=== PATIENT | male | born 1970 | race American Indian/Alaskan Native ===

== ENCOUNTER 2017-10-15 16:31 | Emergency (ER) | payer MEDICARE ==
[2017-10-15 17:18] LABS: Basophils % (Auto) 1.2 % (0.0-1.8); Eosinophils % (Auto) 0.9 % (0.0-4.3); Hematocrit 32.6 % (35.5-45.6); Hemoglobin 10.5 gm/dl (11.8-15.2); Mean Corpuscular HGB Conc 32 % (32-34); Mean Corpuscular Hemoglobin 28 pg (28-32); Mean Corpuscular Volume 86 fl (84-94); Platelet Count 324 K/mm3 (140-440); Red Blood Count 3.79 M/mm3 (3.65-5.03); Red Cell Distribution Width 16.1 % (13.2-15.2); White Blood Count 5.7 K/mm3 (4.5-11.0)
[2017-10-15 17:41] LABS: Anion Gap 20 mmol/L; BUN/Creatinine Ratio 20; Blood Urea Nitrogen 20 mg/dL (9-20); Carbon Dioxide 22 mmol/L (22-30); Chloride 98.6 mmol/L (98-107); Glucose 281 mg/dL (75-100); Potassium 3.9 mmol/L (3.6-5.0); Sodium 137 mmol/L (137-145)
[2017-10-16] MEDS ORDERED: LASIX IV ONE (01:20)
--- NOTE | 2017-10-16 01:26 | Emergency Department Report ---
ED Shortness of Breath HPI - General Chief Complaint: Chest Pain Stated Complaint: CHEST PAIN,FLUIDS ON LEGS Time Seen by Provider: 10/16/17 00:42 Source: patient Mode of arrival: Ambulatory Limitations: No Limitations - History of Present Illness Initial Comments: The patient is complaining of bilateral leg swelling. He also complained of bloating of the abdomen. He said he has gained significant amount of weight over the last few weeks. Patient also complains of some shortness of breath on exertion. He denies any fever or cough. He also complains of some mild left- sided chest pain. Patient said over the last 1 week he has doubled up on his Lasix dose but despite this he has continued to gain weight MD Complaint: shortness of breath -: Gradual Severity: mild Quality: dull Consistency: intermittent Improves With: nothing Worsens With: nothing Associated Symptoms: chest pain Treatments Prior to Arrival: none - Related Data Home Medications Medication Instructions Recorded Confirmed Last Taken Aspirin [Aspirin TAB] 325 mg PO DAILY 03/13/14 04/23/17 03/12/14 Gabapentin 800 mg PO TID 03/13/14 04/23/17 03/12/14 hydrALAZINE [Apresoline TAB] 50 mg PO TID 03/13/14 04/23/17 03/12/14 metFORMIN [Glucophage] 1,000 mg PO BID 03/13/14 04/23/17 03/12/14 Allopurinol [Zyloprim] 300 mg PO BID 04/23/17 04/23/17 Unknown AtorvaSTATin [Lipitor] 20 mg PO QHS 04/23/17 04/23/17 Unknown Carvedilol [Coreg] 1 tab PO BID 04/23/17 04/23/17 Unknown Colchicine [Colcrys] 0.6 mg PO BID 04/23/17 04/23/17 Unknown Insulin Glargine,Hum.rec.anlog 40 units PO QHS 04/23/17 04/23/17 Unknown [Lantus Solostar] Isosorbide Dinitrate [Isordil 20 mg PO TID 04/23/17 04/23/17 Unknown Titradose] amLODIPine [Norvasc] 10 mg PO QDAY 04/23/17 04/23/17 Unknown Previous Rx's Medication Instructions Recorded Last Taken Type Furosemide [Lasix TAB] 40 mg PO DAILY #30 tablet 04/25/17 Unknown Rx Allergies Allergy/AdvReac Type Severity Reaction Status Date / Time No Known Allergies Allergy Verified 01/22/14 22:24 ED Review of Systems ROS: Stated complaint: CHEST PAIN,FLUIDS ON LEGS Other details as noted in HPI Comment: All other systems reviewed and negative ED Past Medical Hx - Past Medical History Hx Hypertension: Yes Hx Heart Attack/AMI: Yes (2006) Hx Congestive Heart Failure: Yes Hx Diabetes: Yes Additional medical history: high cholesterol - Surgical History Hx Internal Defibrillator: Yes Additional Surgical History: defibrilator, right shoulder surgery - Social History Smoking Status: Never Smoker Substance Use Type: None - Medications Home Medications: Home Medications Medication Instructions Recorded Confirmed Last Taken Type Aspirin [Aspirin TAB] 325 mg PO DAILY 03/13/14 04/23/17 03/12/14 History Gabapentin 800 mg PO TID 03/13/14 04/23/17 03/12/14 History hydrALAZINE [Apresoline TAB] 50 mg PO TID 03/13/14 04/23/17 03/12/14 History metFORMIN [Glucophage] 1,000 mg PO BID 03/13/14 04/23/17 03/12/14 History Allopurinol [Zyloprim] 300 mg PO BID 04/23/17 04/23/17 Unknown History AtorvaSTATin [Lipitor] 20 mg PO QHS 04/23/17 04/23/17 Unknown History Carvedilol [Coreg] 1 tab PO BID 04/23/17 04/23/17 Unknown History Colchicine [Colcrys] 0.6 mg PO BID 04/23/17 04/23/17 Unknown History Insulin Glargine,Hum.rec.anlog 40 units PO QHS 04/23/17 04/23/17 Unknown History [Lantus Solostar] Isosorbide Dinitrate [Isordil 20 mg PO TID 04/23/17 04/23/17 Unknown History Titradose] amLODIPine [Norvasc] 10 mg PO QDAY 04/23/17 04/23/17 Unknown History Furosemide [Lasix TAB] 40 mg PO DAILY #30 tablet 04/25/17 Unknown Rx ED Physical Exam - General Limitations: No Limitations General appearance: alert, in no apparent distress - Head Head exam: Present: atraumatic, normocephalic - Eye Eye exam: Present: normal appearance, PERRL Pupils: Present: normal accommodation - ENT ENT exam: Present: normal exam, normal orophraynx, mucous membranes moist - Neck Neck exam: Present: normal inspection - Respiratory Respiratory exam: Present: normal lung sounds bilaterally. Absent: respiratory distress, wheezes - Cardiovascular Cardiovascular Exam: Present: regular rate, normal rhythm - GI/Abdominal GI/Abdominal exam: Present: soft, distended (uniformly distended), tenderness ( suprapubic). Absent: guarding - Rectal Rectal exam: Present: deferred - Extremities Exam Extremities exam: Present: normal inspection, full ROM - Back Exam Back exam: Present: normal inspection, full ROM - Neurological Exam Neurological exam: Present: alert, oriented X3. Absent: altered - Psychiatric Psychiatric exam: Present: normal affect, normal mood - Skin Skin exam: Present: warm, intact. Absent: dry ED Course Vital Signs 10/15/17 10/15/17 10/15/17 16:47 23:30 23:37 Temperature 98.4 F 98 F Pulse Rate 92 H 82 88 Respiratory 16 22 20 Rate Blood Pressure 125/77 127/80 Blood Pressure 120/83 [Left] O2 Sat by Pulse 94 98 Oximetry 10/15/17 10/16/17 10/16/17 23:45 00:00 00:15 Temperature Pulse Rate 81 87 84 Respiratory 20 17 17 Rate Blood Pressure 122/83 124/88 124/85 Blood Pressure [Left] O2 Sat by Pulse 93 Oximetry 10/16/17 10/16/17 10/16/17 00:30 00:45 01:00 Temperature Pulse Rate 82 80 80 Respiratory 16 14 18 Rate Blood Pressure 123/82 111/78 114/84 Blood Pressure [Left] O2 Sat by Pulse 92 90 Oximetry 10/16/17 10/16/17 10/16/17 01:15 01:30 01:45 Temperature Pulse Rate 87 83 83 Respiratory 12 17 16 Rate Blood Pressure 128/86 123/86 114/84 Blood Pressure [Left] O2 Sat by Pulse 97 96 96 Oximetry 10/16/17 10/16/17 10/16/17 02:01 02:15 02:30 Temperature Pulse Rate 82 85 Respiratory 20 18 Rate Blood Pressure 114/84 114/84 126/94 Blood Pressure [Left] O2 Sat by Pulse 95 97 96 Oximetry 10/16/17 02:45 Temperature Pulse Rate Respiratory Rate Blood Pressure 145/107 Blood Pressure [Left] O2 Sat by Pulse 96 Oximetry - Reevaluation(s) Reevaluation #1: 10/16/17 03:10 Patient was ambulated in the ED pre-and post-ambulation pulse oximetry was stable ED Medical Decision Making - Lab Data Result diagrams: 10/15/17 16:57 10/15/17 16:57 - EKG Data -: EKG Interpreted by Me EKG shows normal: sinus rhythm, axis (normal), intervals (normal), QRS complexes (normal), ST-T waves (normal) Rate: normal - EKG Data When compared to previous EKG there are: no significant change Interpretation: no acute changes - Radiology Data Radiology results: report reviewed Critical care attestation.: If time is entered above; I have spent that time in minutes in the direct care of this critically ill patient, excluding procedure time. ED Disposition Clinical Impression: Bilateral leg edema Disposition: TO HOME OR SELFCARE Is pt being admited?: No Does the pt Need Aspirin: No Condition: Stable Instructions: Leg Edema (ED), Heart Failure (ED) Additional Instructions: Decrease sodium intake. Take your Lasix 3 times a day until you see your primary care doctor in 3-5 days. Referrals: MIHIR NORTH MD [Primary Care Provider] - 3-5 Days Time of Disposition: 03:12 Print Language: TAIWANESE
--- NOTE | 2017-10-16 03:00 | XRay Report ---
FINAL REPORT PROCEDURE: XR CHEST 1V AP TECHNIQUE: Chest radiograph anteroposterior view. CPT 23529 HISTORY: dyspnea COMPARISON: No prior studies are available for comparison. FINDINGS: Heart: Heart is enlarged. Mediastinum/Vessels: Normal. Lungs/Pleural space: Lungs are clear. There are no infiltrates, effusions or pneumothoraces.. Bony thorax: No acute osseous abnormality. Life support devices: There is a unipolar pacemaker in proper position.. IMPRESSION: There is cardiomegaly. There is no acute lung disease..
[2017-10-16 03:42] VITALS: BP 134/88
== END 2017-10-16 03:42 | disposition home or self-care (01) ==
LOC: ED 16:31
DX: R60.0 Localized edema (principal); R06.02 Shortness of breath; R07.9 Chest pain, unspecified; I10 Essential (primary) hypertension; I25.2 Old myocardial infarction; E11.9 Type 2 diabetes mellitus without complications; E78.5 Hyperlipidemia, unspecified; I50.9 Heart failure, unspecified; Z79.82 Long term (current) use of aspirin; Z79.4 Long term (current) use of insulin
CPT/HCPCS: 36415; 71010; 80048; 83880; 84484; 85025; 93005; 93010; 96374; 99284; J1940

== ENCOUNTER 2018-02-06 18:45 | Inpatient (IN) | payer MEDICARE ==
[2018-02-06 20:15] LABS: Basophils # (Auto) 0.1 K/mm3 (0.0-0.1); Basophils % (Auto) 1.6 % (0.0-1.8); Eosinophils % (Auto) 0.5 % (0.0-4.3); Hematocrit 32.4 % (35.5-45.6); Hemoglobin 10.6 gm/dl (11.8-15.2); Lymphocytes # (Auto) 1.2 K/mm3 (1.2-5.4); Lymphocytes % (Auto) 18.5 % (13.4-35.0); Mean Corpuscular HGB Conc 33 % (32-34); Mean Corpuscular Hemoglobin 27 pg (28-32); Mean Corpuscular Volume 82 fl (84-94); Monocytes # (Auto) 0.5 K/mm3 (0.0-0.8); Monocytes % (Auto) 7.6 % (0.0-7.3); Platelet Count 352 K/mm3 (140-440); Red Blood Count 3.94 M/mm3 (3.65-5.03); Red Cell Distribution Width 18.7 % (13.2-15.2)
[2018-02-06 20:27] LABS: BUN/Creatinine Ratio 19; Blood Urea Nitrogen 15 mg/dL (9-20); Calcium 8.7 mg/dL (8.4-10.2); Hemolysis Index 52
--- NOTE | 2018-02-06 20:56 | XRay Report ---
FINAL REPORT EXAM: XR CHEST ROUTINE 2V HISTORY: Shortness of breath COMPARISON: October 16, 2017 FINDINGS:: Frontal and lateral views of the chest obtained. Stable cardiac enlargement. Left-sided cardiac defibrillator is in place. Mild hazy opacities at the lung bases concerning for mild congestion versus atelectasis. No large consolidation or effusion. No pneumothorax. Findings are similar prior study. IMPRESSION:: Findings concerning for mild congestion versus atelectasis at the lung bases. No large airspace consolidation or effusion.
[2018-02-06] MEDS ORDERED: LASIX IV ONE (21:38)
[2018-02-06] MEDS ORDERED: ROCEPHIN/NS 1 GM/50 ML 1 GM/50 ML BAG IV ONE (21:38)
[2018-02-06] MEDS ORDERED: ZITHROMAX 500 MG in NACL 0.9% 250ML 250 ML IV ONE (21:38)
[2018-02-06] MEDS ORDERED: TESSALON PERLES PO ONE (21:38)
[2018-02-06] MEDS ORDERED: NORCO 5/325 PO ONE ×2 (21:38→21:41)
--- NOTE | 2018-02-06 21:41 | Emergency Department Report ---
ED Shortness of Breath HPI - General Chief Complaint: Dyspnea/Respdistress Stated Complaint: FLU LIKE SYMPTOMS Time Seen by Provider: 02/06/18 21:27 Source: patient, RN notes reviewed, old records reviewed Mode of arrival: Ambulatory Limitations: No Limitations - History of Present Illness Initial Comments: 47-year-old male with a past medical history of CHF, AICD placement, diabetes, [place], hypertension, and elevated cholesterol presents to the hospital complaining of cough and cold symptoms 9 days progressively worsening despite over-the- counter treatment. Patient states that cough is productive bloody green mucus. Denies known fever but positive fever and chills at home. For the past 4 days patient has been experiencing orthopnea, PND, and dyspnea on exertion. Complains of moderate anterior chest wall pain that is intermittent, worse palpation, cough, and movement. Denies recent antibiotic use. Compliant with all his medications. Patient thinks he received a flu shot this season. Slate Handler: Dr Abdoul Escobedo - Related Data Home Medications Medication Instructions Recorded Confirmed Last Taken Aspirin [Aspirin TAB] 325 mg PO DAILY 03/13/14 04/23/17 03/12/14 Gabapentin 800 mg PO TID 03/13/14 04/23/17 03/12/14 hydrALAZINE [Apresoline TAB] 50 mg PO TID 03/13/14 04/23/17 03/12/14 metFORMIN [Glucophage] 1,000 mg PO BID 03/13/14 04/23/17 03/12/14 Allopurinol [Zyloprim] 300 mg PO BID 04/23/17 04/23/17 Unknown AtorvaSTATin [Lipitor] 20 mg PO QHS 04/23/17 04/23/17 Unknown Carvedilol [Coreg] 1 tab PO BID 04/23/17 04/23/17 Unknown Colchicine [Colcrys] 0.6 mg PO BID 04/23/17 04/23/17 Unknown Insulin Glargine,Hum.rec.anlog 40 units PO QHS 04/23/17 04/23/17 Unknown [Lantus Solostar] Isosorbide Dinitrate [Isordil 20 mg PO TID 04/23/17 04/23/17 Unknown Titradose] amLODIPine [Norvasc] 10 mg PO QDAY 04/23/17 04/23/17 Unknown Previous Rx's Medication Instructions Recorded Last Taken Type Furosemide [Lasix TAB] 40 mg PO DAILY #30 tablet 04/25/17 Unknown Rx Allergies Allergy/AdvReac Type Severity Reaction Status Date / Time No Known Allergies Allergy Verified 01/22/14 22:24 ED Review of Systems ROS: Stated complaint: FLU LIKE SYMPTOMS Other details as noted in HPI Comment: All other systems reviewed and negative ED Past Medical Hx - Past Medical History Previous Medical History?: Yes Hx Hypertension: Yes Hx Heart Attack/AMI: Yes (2006) Hx Congestive Heart Failure: Yes Hx Diabetes: Yes Additional medical history: high cholesterol - Surgical History Hx Internal Defibrillator: Yes Additional Surgical History: defibrilator, shoulder surgery - Social History Smoking Status: Never Smoker Substance Use Type: None - Medications Home Medications: Home Medications Medication Instructions Recorded Confirmed Last Taken Type Aspirin [Aspirin TAB] 325 mg PO DAILY 03/13/14 04/23/17 03/12/14 History Gabapentin 800 mg PO TID 03/13/14 04/23/17 03/12/14 History hydrALAZINE [Apresoline TAB] 50 mg PO TID 03/13/14 04/23/17 03/12/14 History metFORMIN [Glucophage] 1,000 mg PO BID 03/13/14 04/23/17 03/12/14 History Allopurinol [Zyloprim] 300 mg PO BID 04/23/17 04/23/17 Unknown History AtorvaSTATin [Lipitor] 20 mg PO QHS 04/23/17 04/23/17 Unknown History Carvedilol [Coreg] 1 tab PO BID 04/23/17 04/23/17 Unknown History Colchicine [Colcrys] 0.6 mg PO BID 04/23/17 04/23/17 Unknown History Insulin Glargine,Hum.rec.anlog 40 units PO QHS 04/23/17 04/23/17 Unknown History [Lantus Solostar] Isosorbide Dinitrate [Isordil 20 mg PO TID 04/23/17 04/23/17 Unknown History Titradose] amLODIPine [Norvasc] 10 mg PO QDAY 04/23/17 04/23/17 Unknown History Furosemide [Lasix TAB] 40 mg PO DAILY #30 tablet 04/25/17 Unknown Rx ED Physical Exam - General Limitations: No Limitations - Other Other exam information: General: No limitations, patient is alert in no acute distress Head exam: Atraumatic, normocephalic Eyes exam: Normal appearance ENT: Moist mucous membrane, normal oropharynx Neck exam: Normal inspection, full range of motion, no meningismus nontender Respiratory exam: Frequent productive cough. No Rales or wheezes. Reproducible sternum and anterior chest wall tenderness Cardiovascular: Normal rate and rhythm Abdomen: Soft, nondistended, and nontender, with normal bowel sounds, no rebound, or guarding Extremity: Full range of motion normal inspection no deformity, no edema or calf tenderness Back: Normal Inspection, full range of motion, no tenderness Neurologic: Alert, oriented x3, cranial nerves intact, no motor or sensory deficit Psychiatric: normal affect, normal mood Skin: Warm, dry, intact ED Course Vital Signs 02/06/18 19:36 Temperature 98.7 F Pulse Rate 94 H Respiratory 17 Rate Blood Pressure 147/89 O2 Sat by Pulse 97 Oximetry ED Medical Decision Making - Lab Data Result diagrams: 02/06/18 20:08 02/06/18 19:59 Lab Results 02/06/18 02/06/18 Range/Units 19:59 20:08 WBC 6.4 (4.5-11.0) K/mm3 RBC 3.94 (3.65-5.03) M/mm3 Hgb 10.6 L (11.8-15.2) gm/dl Hct 32.4 L (35.5-45.6) % MCV 82 L (84-94) fl MCH 27 L (28-32) pg MCHC 33 (32-34) % RDW 18.7 H (13.2-15.2) % Plt Count 352 (140-440) K/mm3 Lymph % (Auto) 18.5 (13.4-35.0) % [place] % (Auto) 7.6 H (0.0-7.3) % Eos % (Auto) 0.5 (0.0-4.3) % Baso % (Auto) 1.6 (0.0-1.8) % Lymph # 1.2 (1.2-5.4) K/mm3 [place] # 0.5 (0.0-0.8) K/mm3 Eos # 0.0 (0.0-0.4) K/mm3 Baso # 0.1 (0.0-0.1) K/mm3 Seg Neutrophils % 71.8 H (40.0-70.0) % Seg Neutrophils # 4.6 (1.8-7.7) K/mm3 Sodium 138 (137-145) mmol/L Potassium 4.0 (3.6-5.0) mmol/L Chloride 98.4 (98-107) mmol/L Carbon Dioxide 24 (22-30) mmol/L Anion Gap 20 mmol/L BUN 15 (9-20) mg/dL Creatinine 0.8 (0.8-1.5) mg/dL Estimated GFR > 60 ml/min BUN/Creatinine Ratio 19 % Glucose 154 H (75-100) mg/dL Calcium 8.7 (8.4-10.2) mg/dL - EKG Data -: EKG Interpreted by Me (LAE, RAD, old anteroseptal infarct) EKG shows normal: sinus rhythm (92), axis (qrs 115), QRS complexes (106), ST-T waves (no stemi) Rate: normal - EKG Data When compared to previous EKG there are: no significant change (12/04/12) - Radiology Data Radiology results: report reviewed read by radiologist: findings concerning for mild congestive versus atelectasis at the lung bases. No large consolidation or effusion - Medical Decision Making Patient will be treated empirically for bronchitis with antibiotics given persistent respiratory symptoms. Positive component of failure based on chest x -ray and clinical symptoms. Rocephin, azithromycin, and Lasix initiated in AED. Patient treated with [place] and Tessalon Perles for cough and pain. Hospitalist informed for admission - Differential Diagnosis CHF, pneumonia, bronchitis, influenza Critical Care Time: No Critical care attestation.: If time is entered above; I have spent that time in minutes in the direct care of this critically ill patient, excluding procedure time. ED Disposition Clinical Impression: Acute bronchitis, CHF exacerbation, Dyspnea, Diabetes, AICD (automatic cardioverter/defibrillator) present Disposition: -09 OP ADMIT IP TO THIS HOSP Is pt being admited?: Yes Condition: Stable Time of Disposition: 21:41 (Dr Gama/hosp)
[2018-02-06] MEDS ORDERED: cefTRIAXone 1 GM in NACL 0.9% 20 ML IV ONE (21:45)
[2018-02-06 22:00] LABS: Creatine Kinase MB 2.3 ng/mL (0.0-4.0)
[2018-02-06] MEDS ORDERED: TYLENOL PO PRN (23:20)
[2018-02-06] MEDS ORDERED: D50W (25GM) Syringe IV PRN (23:22)
--- NOTE | 2018-02-07 09:16 | History and Physical Report ---
History of Present Illness Date of examination: 02/07/18 Date of admission: 02/06/18 23:17 Chief complaint: shortness of breath History of present illness: 47-year-old male who is well know to me with a past medical history of systolic HF s/p AICD placement by Dr Recinos, diabetes, [place], hypertension, and hypercholesterolenemia presents to the ED of [facility] complainging of cough and cold symptoms 9 days. Progressively worsening despite [id number] treatment. Compliant with all his medications. Patient states that cough is productive bloody green mucus. Denies known fever or chills at home. For the past 4 days patient has been experiencing orthopnea, PND, and dyspnea on exertion. Complains of moderate anterior chest wall pain that is intermittent, worse on palpation, cough, and movement. Pain is non radiatory with no syncope. Denies recent antibiotic use. CXR at the Ed showed pulm. congestion. admission was therefore requested. Past History Past Medical History: diabetes, heart failure, hypertension, hyperlipidemia Past Surgical History: Other (AICD placement) Social history: denies: smoking, alcohol abuse, prescription drug abuse Family history: hypertension Medications and Allergies Allergies Allergy/AdvReac Type Severity Reaction Status Date / Time No Known Allergies Allergy Verified 01/22/14 22:24 Home Medications Medication Instructions Recorded Confirmed Last Taken Type Aspirin [Aspirin TAB] 325 mg PO DAILY 03/13/14 02/08/18 1 Day Ago History ~02/07/18 Gabapentin 800 mg PO TID 03/13/14 02/08/18 1 Day Ago History ~02/07/18 hydrALAZINE [Apresoline TAB] 50 mg PO TID 03/13/14 02/08/18 1 Day Ago History ~02/07/18 metFORMIN [Glucophage] 1,000 mg PO BID 03/13/14 02/08/18 1 Day Ago History ~02/07/18 Allopurinol [Zyloprim] 300 mg PO BID 04/23/17 02/08/18 1 Day Ago History ~02/07/18 AtorvaSTATin [Lipitor] 20 mg PO QHS 04/23/17 02/08/18 1 Day Ago History ~02/07/18 Carvedilol [Coreg] 1 tab PO BID 04/23/17 02/08/18 1 Day Ago History ~02/07/18 Colchicine [Colcrys] 0.6 mg PO BID 04/23/17 02/08/18 1 Day Ago History ~02/07/18 Insulin Glargine,Hum.rec.anlog 40 units PO QHS 04/23/17 02/08/18 1 Day Ago History [Lantus Solostar] ~02/07/18 Isosorbide Dinitrate [Isordil 20 mg PO TID 04/23/17 02/08/18 1 Day Ago History Titradose] ~02/07/18 amLODIPine [Norvasc] 10 mg PO QDAY 04/23/17 02/08/18 1 Day Ago History ~02/07/18 Furosemide [Lasix TAB] 40 mg PO DAILY #30 tablet 04/25/17 02/08/18 1 Day Ago Rx ~02/07/18 Sacubitril/Valsartan [Entresto 49 1 each PO DAILY #30 tablet 02/07/18 Unknown Rx mg-51 mg Tablet] Active Meds: Active Medications Acetaminophen (Tylenol) 650 mg PO Q6H PRN PRN Reason: pain Allopurinol (Zyloprim) 300 mg PO BID [facility] Amlodipine Besylate (Norvasc) 10 mg PO QDAY [facility] Aspirin (Aspirin) 325 mg PO DAILY [facility] Atorvastatin Calcium (Lipitor) 20 mg PO QHS [facility] Carvedilol (Coreg) mg PO BID [facility] Colchicine (Colcrys) 0.6 mg PO BID [facility] Dextrose (D50w (25gm) Syringe) 50 ml IV PRN PRN PRN Reason: Hypoglycemia Furosemide (Lasix) 40 mg IV QDAY [facility] Gabapentin (Neurontin) 800 mg PO TID [facility] Hydralazine HCl (Apresoline) 50 mg PO TID [facility] Insulin Human Regular (Humulin R) 0 units SUB-Q ACHS [facility]; Protocol Isosorbide Dinitrate (Isordil Titradose) 20 mg PO TID [facility] Metformin HCl (Glucophage) 1,000 mg PO BID [facility] Miscellaneous Medication (Insulin Glargine,Hum.Rec.Anlog [Lantus Solostar]) 40 units PO QHS [facility] Review of Systems Constitutional: anorexia, no fever, no chills, no sweats Ears, nose, mouth and throat: no ear pain, no ear discharge, no tinnitis, no decreased hearing, no nose pain, no nasal congestion Cardiovascular: chest pain, no orthopnea, no palpitations, no rapid/irregular heart beat Respiratory: cough, cough with sputum, shortness of breath, no hemoptysis Gastrointestinal: nausea, vomiting, diarrhea, constipation Genitourinary Male: no dysuria, no hematuria, no flank pain, no discharge Integumentary: no rash, no pruritis, no redness, no sores, no wounds Neurological: no transient paralysis, no paralysis, no weakness, no parathesias , no numbness Psychiatric: no anxiety, no memory loss, no change in sleep habits, no sleep disturbances Endocrine: no cold intolerance, no heat intolerance, no polyphagia, no excessive thirst, no polydipsia Hematologic/Lymphatic: no easy bruising, no easy bleeding Allergic/Immunologic: no urticaria, no allergic rhinitis Exam - Constitutional Vitals: Temp Pulse Resp BP Pulse Ox 32.1 F L 85 20 137/95 96 02/07/18 08:11 02/07/18 08:11 02/07/18 08:11 02/07/18 08:11 02/07/18 08:11 General appearance: Present: no acute distress, well-nourished - EENT Eyes: Present: PERRL ENT: clear oral mucosa - Neck Neck: Present: supple, normal ROM - Respiratory Respiratory effort: normal Respiratory: bilateral: CTA - Cardiovascular Heart Sounds: Present: S1 & S2. Absent: rub, click - Extremities Extremities: pulses symmetrical, No edema Peripheral Pulses: within normal limits - Abdominal General gastrointestinal: Present: soft, non-tender, non-distended, normal bowel sounds - Integumentary Integumentary: Present: clear, warm, dry - Musculoskeletal Musculoskeletal: gait normal, strength equal bilaterally - Psychiatric Psychiatric: appropriate mood/affect, intact judgment & insight - Neurologic Neurologic: CNII-XII intact, moves all extremities Results - Labs CBC & Chem 7: 02/08/18 05:15 02/08/18 05:15 Labs: Abnormal lab results 02/06/18 02/06/18 02/06/18 Range/Units 19:39 19:59 19:59 Hgb (11.8-15.2) gm/dl Hct (35.5-45.6) % MCV (84-94) fl MCH (28-32) pg RDW (13.2-15.2) % [place] % (Auto) (0.0-7.3) % Seg Neutrophils % (40.0-70.0) % Glucose 154 H (75-100) mg/dL POC Glucose (70-105) Total Creatine Kinase 448 H (55-170) units/L NT-Pro-B Natriuret Pep 1753 H (0-450) pg/mL 02/06/18 02/07/18 Range/Units 20:08 06:23 Hgb 10.6 L (11.8-15.2) gm/dl Hct 32.4 L (35.5-45.6) % MCV 82 L (84-94) fl MCH 27 L (28-32) pg RDW 18.7 H (13.2-15.2) % [place] % (Auto) 7.6 H (0.0-7.3) % Seg Neutrophils % 71.8 H (40.0-70.0) % Glucose (75-100) mg/dL POC Glucose 192 H (70-105) Total Creatine Kinase (55-170) units/L NT-Pro-B Natriuret Pep (0-450) pg/mL Assessment and Plan - Acute on chronic systolic heart failure S/p AICD placement Commence pt on Strict Is and Os Daily weight Diuretics ACEI, BB and Fluid restriction to 1.5 L - Pleurisy commence Expectorant and Azithromycin - T2DM Commece SSI. Consistent CHO diet - MOrbid OBesity Dietary counselling - Anemia Of chronic disease - DVT Ppx With lovenox and SCD
[2018-02-07] MEDS ORDERED: MORPHINE IV PRN (09:22)
[2018-02-07] MEDS ORDERED: LASIX IV SCH ×2 (10:00)
[2018-02-07] MEDS ORDERED: NON-FORMULARY PO SCH (10:00)
[2018-02-07] MEDS ORDERED: ASPIRIN PO SCH (10:00)
[2018-02-07] MEDS ORDERED: COREG PO SCH (10:00)
[2018-02-07] MEDS ORDERED: ZITHROMAX 500 MG in NACL 0.9% 250ML 250 ML IV SCH (10:00)
--- NOTE | 2018-02-07 10:02 | Consultation ---
History of Present Illness Consult date: 02/07/18 Requesting physician: MIHIR NORTH Consult reason: chest pain, congestive heart failure History of present illness: The pt is a 47 YO male with a past medical history significant for dilated NICMP , AICD in situ, chronic systolic HF, HTN, DM, HLP, MARQUITA. He is followed in our office by Dr. Escobedo. He presented with c/o chest pain, SOB, cough and cold like symptoms for the past 4 days despite taking OTC cold medications. He describes his c/o chest pain as an intermittent, nonexertional, nonradiating pressure which is only present with coughing and movement. Pt states that the pain feels as though he has "pulled a muscle". He also reports a productive cough with green and bloody suptum. Pt denies any palpitations, n/v, diaphoresis, fever, chills, dizziness or syncope. He reports compliance with all prescription medications. Pt noted to have 6 beat NSVT this AM on telemetry. LHC done 11/2012 showed no angiographic evidence of significant CAD, EF 20-25%, no . Echo done 05/2013 showed EF 20-25%, LV mod dilated, mild LVH, severe and diffuse LV hypokinesis, RV mod dilated, pacemaker in RV, RVSP 19mmHg, LA mod dilated, RA mod dilated, mild MR, mild TR. Past History Past Medical History: diabetes, heart failure (systolic), hypertension, hyperlipidemia, other (sleep apnea) Past Surgical History: Other (AICD placement) Social history: denies: smoking, alcohol abuse, prescription drug abuse Family history: hypertension Medications and Allergies Allergies Allergy/AdvReac Type Severity Reaction Status Date / Time No Known Allergies Allergy Verified 01/22/14 22:24 Home Medications Medication Instructions Recorded Confirmed Last Taken Type Aspirin [Aspirin TAB] 325 mg PO DAILY 03/13/14 04/23/17 03/12/14 History Gabapentin 800 mg PO TID 03/13/14 04/23/17 03/12/14 History hydrALAZINE [Apresoline TAB] 50 mg PO TID 03/13/14 04/23/17 03/12/14 History metFORMIN [Glucophage] 1,000 mg PO BID 03/13/14 04/23/17 03/12/14 History Allopurinol [Zyloprim] 300 mg PO BID 04/23/17 04/23/17 Unknown History AtorvaSTATin [Lipitor] 20 mg PO QHS 04/23/17 04/23/17 Unknown History Carvedilol [Coreg] 1 tab PO BID 04/23/17 04/23/17 Unknown History Colchicine [Colcrys] 0.6 mg PO BID 04/23/17 04/23/17 Unknown History Insulin Glargine,Hum.rec.anlog 40 units PO QHS 04/23/17 04/23/17 Unknown History [Lantus Solostar] Isosorbide Dinitrate [Isordil 20 mg PO TID 04/23/17 04/23/17 Unknown History Titradose] amLODIPine [Norvasc] 10 mg PO QDAY 04/23/17 04/23/17 Unknown History Furosemide [Lasix TAB] 40 mg PO DAILY #30 tablet 04/25/17 Unknown Rx Sacubitril/Valsartan [Entresto 49 1 each PO DAILY #30 tablet 02/07/18 Unknown Rx mg-51 mg Tablet] Active Meds: Active Medications Acetaminophen (Tylenol) 650 mg PO Q6H PRN PRN Reason: pain Allopurinol (Zyloprim) 300 mg PO BID [facility] Amlodipine Besylate (Norvasc) 10 mg PO QDAY [facility] Aspirin (Aspirin) 325 mg PO DAILY [facility] Atorvastatin Calcium (Lipitor) 20 mg PO QHS [facility] Carvedilol (Coreg) mg PO BID [facility] Carvedilol (Coreg) 12.5 mg PO BID [facility] Colchicine (Colcrys) 0.6 mg PO BID [facility] Dextrose (D50w (25gm) Syringe) 50 ml IV PRN PRN PRN Reason: Hypoglycemia Furosemide (Lasix) 40 mg IV QDAY SARAI Furosemide (Lasix) 20 mg IV QDAY [facility] Gabapentin (Neurontin) 800 mg PO TID [facility] Hydralazine HCl (Apresoline) 50 mg PO TID [facility] Azithromycin 500 mg/ Sodium (Chloride) 250 mls @ 250 mls/hr IV Q24HR [facility] Insulin Human Regular (Humulin R) 0 units SUB-Q ACHS SARAI; Protocol Isosorbide Dinitrate (Isordil Titradose) 20 mg PO TID [facility] Metformin HCl (Glucophage) 1,000 mg PO BID [facility] Miscellaneous Medication (Insulin Glargine,Hum.Rec.Anlog [Lantus Solostar]) 40 units PO QHS [facility] Morphine Sulfate (Morphine) 2 mg IV Q5MIN PRN PRN Reason: Chest Pain Spironolactone (Aldactone) 25 mg PO QDAY [facility] Review of Systems Constitutional: no weight loss, no weight gain, no fever, no chills, no sweats Ears, nose, mouth and throat: nasal congestion, nasal discharge, headache, no ear pain, no nose pain Cardiovascular: chest pain, shortness of breath, no palpitations, no rapid/ irregular heart beat, no edema, no syncope, no lightheadedness, no leg edema Respiratory: cough with sputum, hemoptysis, shortness of breath, congestion, pain on inspiration, no wheezing Gastrointestinal: no abdominal pain, no nausea, no vomiting, no diarrhea, no constipation, no change in bowel habits Genitourinary Male: no dysuria, no hematuria, no flank pain, no discharge, no urinary frequency, no urinary hesitancy Musculoskeletal: no neck stiffness, no neck pain, no shooting arm pain, no arm numbness/tingling, no low back pain, no shooting leg pain, no leg numbness/ tingling, no redness of joints Integumentary: no rash, no pruritis, no redness, no sores, no wounds Neurological: no head injury, no paralysis, no weakness, no parathesias, no numbness, no tingling, no seizures, no syncope Psychiatric: no anxiety, no memory loss Endocrine: no cold intolerance, no heat intolerance Hematologic/Lymphatic: no easy bruising, no easy bleeding, no lymphadenopathy Allergic/Immunologic: no urticaria, no wheezing, no persistent infections Physical Examination Vital Signs Temp Pulse Resp BP Pulse Ox 98.7 F 94 H 17 147/89 97 02/06/18 19:36 02/06/18 19:36 02/06/18 19:36 02/06/18 19:36 02/06/18 19:36 General appearance: no acute distress HEENT: Positive: PERRL, Normocephaly, Mucus Membranes Moist Neck: Positive: neck supple, trachea midline Cardiac: Positive: Reg Rate and Rhythm, S1/S2, S3 Lungs: Positive: Decreased Breath Sounds Neuro: Positive: Grossly Intact Abdomen: Negative: Tender Skin: Positive: Clear. Negative: Rash, Wound Musculoskeletal: No Fluid Collection, No Pain, Normal Range of Motion Extremities: Absent: edema Results 02/06/18 20:08 02/06/18 19:59 Cardiac Enzymes 02/06/18 Range/Units 19:39 CK-MB (CK-2) 2.3 (0.0-4.0) ng/mL CBC 02/06/18 Range/Units 20:08 WBC 6.4 (4.5-11.0) K/mm3 RBC 3.94 (3.65-5.03) M/mm3 Hgb 10.6 L (11.8-15.2) gm/dl Hct 32.4 L (35.5-45.6) % Plt Count 352 (140-440) K/mm3 Lymph # 1.2 (1.2-5.4) K/mm3 [place] # 0.5 (0.0-0.8) K/mm3 Eos # 0.0 (0.0-0.4) K/mm3 Baso # 0.1 (0.0-0.1) K/mm3 Comprehensive Metabolic Panel 02/06/18 02/07/18 Range/Units 19:59 07:26 Sodium 138 (137-145) mmol/L Potassium 4.0 (3.6-5.0) mmol/L Chloride 98.4 (98-107) mmol/L Carbon Dioxide 24 (22-30) mmol/L BUN 15 (9-20) mg/dL Creatinine 0.8 (0.8-1.5) mg/dL Glucose 154 H (75-100) mg/dL Calcium 8.7 9.0 (8.4-10.2) mg/dL - Imaging and Cardiology Echo: report reviewed (05/2013 showed EF 20-25%, LV mod dilated, mild LVH, severe and diffuse LV hypokinesis, RV mod dilated, pacemaker in RV, RVSP 19mmHg , LA mod dilated, RA mod dilated, mild MR, mild TR. ) Cardiac cath: report reviewed (11/2012 showed no angiographic evidence of significant CAD, EF 20-25%, no . ) EKG: report reviewed, image reviewed EKG interpretations - Telemetry EKG Rhythm: Sinus Rhythm - EKG Sinus rhythms and dysrhythmias: sinus rhythm Assessment and Plan Assessment: Chest pain, atypical - appears to be pleuritic in nature; ECG with NAF; CE negative for AMI Acute bronchitis Dilated NICMP AICD in situ Chronic systolic HF - no current evidence of acutely decompensated HF HTN DM HLP MARQUITA NSVT Plan: Currently stable cardiac status. Resume home cardiac regimen, including Entresto. No indication for repeat echo or ischemic evaluation at this time. Abx per primary. Assessment and plan reviewed with pt at bedside. The patient has been seen in conjunction with Dr. Mobley who agrees with the assessment and plan of care.
[2018-02-07] MEDS: COLCRYS PO SCH ×2 (11:15→23:30)
[2018-02-07] MEDS: GLUCOPHAGE PO SCH ×2 (11:15→23:31)
[2018-02-07] MEDS: NORVASC PO SCH (11:16)
[2018-02-07] MEDS: COREG PO SCH ×2 (11:16→23:30)
[2018-02-07] MEDS: ALDACTONE PO SCH (11:17)
[2018-02-07] MEDS: HumuLIN R SUB-Q SCH ×4 (11:17→23:28)
[2018-02-07] MEDS: ZYLOPRIM PO SCH ×2 (11:17→23:30)
[2018-02-07 13:56] LABS: Alanine Aminotransferase 14 units/L (7-56); Albumin 3.8 g/dL (3.9-5); BUN/Creatinine Ratio 21; Blood Urea Nitrogen 17 mg/dL (9-20); Calcium 9.2 mg/dL (8.4-10.2); Hemolysis Index 76
[2018-02-07] MEDS ORDERED: [UNRECOGNIZED DRUG - OTHER] PO SCH (14:00)
[2018-02-07 14:15] LABS: INR 2.37 (0.87-1.13)
[2018-02-07] MEDS: APRESOLINE PO SCH ×2 (14:59→21:07)
[2018-02-07] MEDS: NEURONTIN PO SCH ×2 (15:00→21:07)
[2018-02-07] MEDS: ISORDIL TITRADOSE PO SCH ×2 (15:00→21:08)
[2018-02-07] MEDS: NON-FORMULARY PO SCH (16:00)
[2018-02-07] MEDS: LASIX PO SCH (17:25)
[2018-02-07] MEDS ORDERED: NON-FORMULARY (Insulin Glargine,Hum.Rec.Anlog [Lantus Solostar] 40 UNITS) PO SCH (22:00)
[2018-02-07] MEDS: LANTUS SUB-Q SCH (23:28)
[2018-02-08] MEDS: LASIX PO SCH ×2 (05:57→22:07)
[2018-02-08 06:21] LABS: Basophils % (Auto) 0.6 % (0.0-1.8); Eosinophils # (Auto) 0.1 K/mm3 (0.0-0.4); Eosinophils % (Auto) 2.1 % (0.0-4.3); Hematocrit 33.8 % (35.5-45.6); Hemoglobin 10.4 gm/dl (11.8-15.2); Lymphocytes # (Auto) 1.1 K/mm3 (1.2-5.4); Lymphocytes % (Auto) 22.2 % (13.4-35.0); Mean Corpuscular HGB Conc 31 % (32-34); Mean Corpuscular Hemoglobin 26 pg (28-32); Mean Corpuscular Volume 84 fl (84-94); Monocytes # (Auto) 0.5 K/mm3 (0.0-0.8); Monocytes % (Auto) 10.3 % (0.0-7.3); Platelet Count 323 K/mm3 (140-440); Red Cell Distribution Width 18.7 % (13.2-15.2)
[2018-02-08 06:43] LABS: BUN/Creatinine Ratio 29; Blood Urea Nitrogen 20 mg/dL (9-20); Calcium 8.6 mg/dL (8.4-10.2); Hemolysis Index 9
[2018-02-08] MEDS: HumuLIN R SUB-Q SCH ×4 (09:06→23:23)
[2018-02-08] MEDS: COLCRYS PO SCH ×2 (09:09→22:07)
[2018-02-08] MEDS: NEURONTIN PO SCH ×3 (09:09→22:08)
[2018-02-08] MEDS: ZYLOPRIM PO SCH ×2 (09:10→22:07)
[2018-02-08] MEDS: ZITHROMAX PO SCH (09:10)
[2018-02-08] MEDS: GLUCOPHAGE PO SCH ×2 (09:10→23:02)
[2018-02-08] MEDS: BABY ASPIRIN PO SCH (09:10)
[2018-02-08] MEDS: ALDACTONE PO SCH (09:11)
[2018-02-08] MEDS: APRESOLINE PO SCH ×3 (09:11→22:06)
[2018-02-08] MEDS: COREG PO SCH ×2 (09:12→22:06)
[2018-02-08] MEDS: ISORDIL TITRADOSE PO SCH ×3 (09:12→22:07)
--- NOTE | 2018-02-08 09:26 | Progress Note ---
Assessment and Plan Assessment: Acute bronchitis Chest pain, atypical - currently resolved; pleuritic in nature; ECG with NAF; CE negative for AMI Dilated NICMP AICD in situ Chronic systolic HF - no current evidence of acutely decompensated HF HTN DM HLP MARQUITA NSVT Plan: Abx per primary. Currently stable cardiac status. Pt may discharge home from cardiology standpoint. Cont present cardiac regimen, including ASA 81, lipitor, coreg, Entresto, hydralazine, isosorbide dinitrate, aldactone. Pt reports that at his last office visit with Dr. Escobedo in 12/2017, he was told to discontinue home dosage of PO lasix 80mg BID as he was recently initiated on Entresto. However, office records do not indicate that it was recommended for PO lasix to be discontinued. At discharge, recommend continuation of PO lasix 40mg BID given chronic systolic heart failure. Will defer adjustment of assisted diuretic therapy to pt's primary infantry officer. D/ w pt and he is agreeable to this plan. Follow up in our [place] office with Dr. Escobedo on 02/18/2018 @ 2:00PM. Assessment and plan reviewed with pt at bedside. The patient has been seen in conjunction with Dr. Mobley who agrees with the assessment and plan of care. Subjective Date of service: 02/08/18 Principal diagnosis: acute bronchitis Interval history: pt sitting upright at bedside, states he is feeling better today. VSS. Objective Last Vital Signs Temp 97.5 F L 02/08/18 09:11 Pulse 83 02/08/18 09:11 Resp 20 02/08/18 09:11 BP 124/86 02/08/18 09:11 Pulse Ox 99 02/08/18 09:11 - Physical Examination General: No Apparent Distress HEENT: Positive: PERRL, Normocephaly, Mucus Membranes Moist Neck: Positive: neck supple, trachea midline Cardiac: Positive: Reg Rate and Rhythm, S1/S2 Lungs: Positive: Decreased Breath Sounds Neuro: Positive: Grossly Intact Abdomen: Negative: Tender Skin: Positive: Clear. Negative: Rash, Wound Musculoskeletal: No Fluid Collection, No Pain, Normal Range of Motion Extremities: Absent: edema - Labs and Meds Cardiac Enzymes 02/07/18 Range/Units 12:55 AST 19 (5-40) units/L Coagulation 02/07/18 Range/Units 12:55 PT 27.5 H (12.2-14.9) Sec. INR 2.37 H (0.87-1.13) CBC 02/08/18 Range/Units 05:15 WBC 5.0 (4.5-11.0) K/mm3 RBC 4.00 (3.65-5.03) M/mm3 Hgb 10.4 L (11.8-15.2) gm/dl Hct 33.8 L (35.5-45.6) % Plt Count 323 (140-440) K/mm3 Lymph # 1.1 L (1.2-5.4) K/mm3 [place] # 0.5 (0.0-0.8) K/mm3 Eos # 0.1 (0.0-0.4) K/mm3 Baso # 0.0 (0.0-0.1) K/mm3 Comprehensive Metabolic Panel 02/07/18 02/08/18 Range/Units 12:55 05:15 Sodium 136 L 138 (137-145) mmol/L Potassium 3.7 3.4 L (3.6-5.0) mmol/L Chloride 95.2 L 98.9 (98-107) mmol/L Carbon Dioxide 24 24 (22-30) mmol/L BUN 17 20 (9-20) mg/dL Creatinine 0.8 0.7 L (0.8-1.5) mg/dL Glucose 227 H 171 H (75-100) mg/dL Calcium 9.2 8.6 (8.4-10.2) mg/dL AST 19 (5-40) units/L ALT 14 (7-56) units/L Alkaline Phosphatase 125 (35-129) units/L Total Protein 7.2 (6.3-8.2) g/dL Albumin 3.8 L (3.9-5) g/dL - Imaging and Cardiology EKG: report reviewed, image reviewed Echo: report reviewed (05/2013 showed EF 20-25%, LV mod dilated, mild LVH, severe and diffuse LV hypokinesis, RV mod dilated, pacemaker in RV, RVSP 19mmHg , LA mod dilated, RA mod dilated, mild MR, mild TR. ) Cardiac cath: report reviewed (11/2012 showed no angiographic evidence of significant CAD, EF 20-25%, no . ) - Telemetry EKG Rhythm: Sinus Rhythm - EKG Sinus rhythms and dysrhythmias: sinus rhythm
[2018-02-08] MEDS ORDERED: LOVENOX SUB-Q ONE (09:36)
--- NOTE | 2018-02-08 09:38 | Progress Note ---
Assessment and Plan - Acute on chronic systolic heart failure S/p AICD placement Commence pt on Strict Is and Os Daily weight Diuretics ACEI, BB and Fluid restriction to 1.5 L - Non ischemic cardiomyopathy cotniue with Mx as above -Hypokalemia will supplement - Pleurisy commence Expectorant and Azithromycin - T2DM Commece SSI. Consistent CHO diet - Morbid Obesity Dietary counselling - Anemia Of chronic disease - DVT Ppx With lovenox and SCD Subjective Date of service: 02/08/18 Principal diagnosis: acute bronchitis Interval history: still coughing with shortness of breath. chest pain resolved Objective - Constitutional Vitals: Vital Signs - 12hr 02/07/18 02/08/18 02/08/18 23:30 00:08 00:09 Temperature 97.8 F Pulse Rate 87 83 83 Respiratory 20 Rate Blood Pressure 132/93 115/71 Blood Pressure [Left] O2 Sat by Pulse 98 99 Oximetry 02/08/18 02/08/18 02/08/18 00:28 03:14 04:59 Temperature Pulse Rate 75 Respiratory 20 Rate Blood Pressure Blood Pressure [Left] O2 Sat by Pulse 99 99 Oximetry 02/08/18 02/08/18 02/08/18 05:30 06:00 09:11 Temperature 97.8 F 97.5 F L Pulse Rate 78 83 83 Respiratory 20 20 Rate Blood Pressure 124/86 Blood Pressure 110/72 124/86 [Left] O2 Sat by Pulse 98 99 Oximetry 02/08/18 09:12 Temperature Pulse Rate 78 Respiratory Rate Blood Pressure 124/86 Blood Pressure [Left] O2 Sat by Pulse Oximetry General appearance: Present: no acute distress, well-nourished - EENT Eyes: PERRL, EOM intact Ears: bilateral: normal - Neck Neck: supple, normal ROM - Respiratory Respiratory effort: normal Respiratory: bilateral: CTA - Cardiovascular Rhythm: regular Heart Sounds: Present: S1 & S2. Absent: gallop, rub Extremities: pulses intact, No edema, normal color, Full ROM - Gastrointestinal General gastrointestinal: Present: soft, non-tender, non-distended, normal bowel sounds - Genitourinary Male genitourinary: normal - Integumentary Integumentary: clear, warm, dry - Musculoskeletal Musculoskeletal: 1, strength equal bilaterally - Neurologic Neurologic: moves all extremities - Psychiatric Psychiatric: memory intact, appropriate mood/affect, intact judgment & insight - Labs CBC & Chem 7: 03/27/18 05:15 02/08/18 05:15 Labs: Abnormal lab results 02/07/18 02/07/18 02/07/18 Range/Units 10:46 12:55 12:55 Hgb (11.8-15.2) gm/dl Hct (35.5-45.6) % MCH (28-32) pg MCHC (32-34) % RDW (13.2-15.2) % [place] % (Auto) (0.0-7.3) % Lymph # (1.2-5.4) K/mm3 PT 27.5 H (12.2-14.9) Sec. INR 2.37 H (0.87-1.13) Sodium 136 L (137-145) mmol/L Potassium (3.6-5.0) mmol/L Chloride 95.2 L (98-107) mmol/L Creatinine (0.8-1.5) mg/dL Glucose 227 H (75-100) mg/dL POC Glucose 309 H (70-105) Albumin 3.8 L (3.9-5) g/dL 02/07/18 02/07/18 02/08/18 Range/Units 16:51 22:33 05:15 Hgb (11.8-15.2) gm/dl Hct (35.5-45.6) % MCH (28-32) pg MCHC (32-34) % RDW (13.2-15.2) % [place] % (Auto) (0.0-7.3) % Lymph # (1.2-5.4) K/mm3 PT (12.2-14.9) Sec. INR (0.87-1.13) Sodium (137-145) mmol/L Potassium 3.4 L (3.6-5.0) mmol/L Chloride (98-107) mmol/L Creatinine 0.7 L (0.8-1.5) mg/dL Glucose 171 H (75-100) mg/dL POC Glucose 143 H 239 H (70-105) Albumin (3.9-5) g/dL 02/08/18 02/08/18 Range/Units 05:15 06:02 Hgb 10.4 L (11.8-15.2) gm/dl Hct 33.8 L (35.5-45.6) % MCH 26 L (28-32) pg MCHC 31 L (32-34) % RDW 18.7 H (13.2-15.2) % [place] % (Auto) 10.3 H (0.0-7.3) % Lymph # 1.1 L (1.2-5.4) K/mm3 PT (12.2-14.9) Sec. INR (0.87-1.13) Sodium (137-145) mmol/L Potassium (3.6-5.0) mmol/L Chloride (98-107) mmol/L Creatinine (0.8-1.5) mg/dL Glucose (75-100) mg/dL POC Glucose 241 H (70-105) Albumin (3.9-5) g/dL
[2018-02-08] MEDS: NORVASC PO SCH (10:00)
[2018-02-08] MEDS ORDERED: NACL 0.9% 250ML 250 ML ONE ×2 (12:12→22:01)
[2018-02-08] MEDS ORDERED: NACL 0.9% 500 ML 500 ML ONE (12:17)
[2018-02-08] MEDS: NON-FORMULARY PO SCH (12:35)
[2018-02-08] MEDS: KCL 10MEQ/100ML 10 MEQ/100 ML BAG IV SCH ×3 (15:39→22:06)
[2018-02-08] MEDS ORDERED: PNEUMOVAX 23 IM ONE (19:02)
[2018-02-08] MEDS ORDERED: LOVENOX SUB-Q SCH (22:00)
[2018-02-08] MEDS: LANTUS SUB-Q SCH (23:03)
[2018-02-09] MEDS ORDERED: NACL 0.9% 250ML IV SCH (02:00)
[2018-02-09 06:32] LABS: Basophils % (Auto) 0.6 % (0.0-1.8); Eosinophils # (Auto) 0.1 K/mm3 (0.0-0.4); Eosinophils % (Auto) 1.7 % (0.0-4.3); Hematocrit 31.6 % (35.5-45.6); Hemoglobin 10.2 gm/dl (11.8-15.2); Lymphocytes # (Auto) 1.1 K/mm3 (1.2-5.4); Lymphocytes % (Auto) 19.6 % (13.4-35.0); Mean Corpuscular HGB Conc 32 % (32-34); Mean Corpuscular Hemoglobin 27 pg (28-32); Mean Corpuscular Volume 83 fl (84-94); Monocytes # (Auto) 0.6 K/mm3 (0.0-0.8); Monocytes % (Auto) 9.8 % (0.0-7.3); Platelet Count 330 K/mm3 (140-440); Red Blood Count 3.82 M/mm3 (3.65-5.03)
[2018-02-09 06:56] LABS: BUN/Creatinine Ratio 26; Blood Urea Nitrogen 21 mg/dL (9-20); Hemolysis Index 3
[2018-02-09] MEDS: LASIX PO SCH (07:23)
[2018-02-09] MEDS: HumuLIN R SUB-Q SCH (08:51)
[2018-02-09] MEDS: APRESOLINE PO SCH (08:58)
[2018-02-09] MEDS: NEURONTIN PO SCH (08:59)
[2018-02-09] MEDS: ISORDIL TITRADOSE PO SCH (08:59)
[2018-02-09] MEDS: GLUCOPHAGE PO SCH (09:00)
[2018-02-09] MEDS: BABY ASPIRIN PO SCH (09:01)
[2018-02-09] MEDS: ZYLOPRIM PO SCH (09:01)
[2018-02-09] MEDS: ZITHROMAX PO SCH (09:01)
[2018-02-09] MEDS: COLCRYS PO SCH (09:02)
[2018-02-09] MEDS: ALDACTONE PO SCH (09:02)
[2018-02-09] MEDS: COREG PO SCH (09:02)
[2018-02-09] MEDS: NORVASC PO SCH (09:03)
[2018-02-09] MEDS: NON-FORMULARY PO SCH (09:04)
[2018-02-09 09:06] VITALS: BP 117/83
--- NOTE | 2018-02-09 09:43 | Discharge Summary ---
Providers - Providers Date of Admission: 02/06/18 23:17 Date of discharge: 02/09/18 Attending physician: MIHIR NORTH 02/07/18 07:01 Consult to Cardiology [CONS] Routine Consulting Provider: MARCELL JACOBS Reason For Exam: SVT 02/07/18 09:22 Consult to Physician [CONS] Routine Comment: Consulting Provider: KHUSHBU HALL Physician Instructions: Reason For Exam: chest pain, Systolic HF s/p AICD Primary care physician: HOME CHILD CARE PROVIDER Hospitalization Reason for admission: systolic Heart failure exercebation and Pleurisy Condition: Stable Pertinent studies: CXR Procedures: none Hospital course: 47-year-old male who is well know to me with a past medical history of systolic HF s/p AICD placement by Dr Recinos, diabetes, DC, hypertension, and hypercholesterolenemia presents to the ED of [facility] complainging of cough and cold symptoms 9 days. Progressively worsening despite [id number] treatment. Compliant with all his medications. Patient states that cough is productive bloody green mucus. Denies known fever or chills at home. For the past 4 days patient has been experiencing orthopnea, PND, and dyspnea on exertion. Complains of moderate anterior chest wall pain that is intermittent, worse on palpation, cough, and movement. Pain is non radiatory with no syncope. Denies recent antibiotic use. CXR at the Ed showed pulm. congestion. admission was therefore requested. On admission, opt was commence on diuretic, ACEI, BB, SSI,. strict Is and Os, Consistent carbohydrate diet with 2g sodium diet, daily eight and iv Azithromycin. cough and shortness of breath improved. Had hypokalemia pedro was corrected with potassium supplementation. Pt is therefore being discharged today to f/u [facility] PCP in 3-5 day and pharmacist hospital in 7 days Disposition: DC-01 TO HOME OR SELFCARE Time spent for discharge: 33 min - Discharge Diagnoses (1) Pleurisy Status: Acute (2) AICD (automatic cardioverter/defibrillator) present Status: Acute (3) Diabetes Status: Acute (4) Diabetic neuropathy Status: Acute (5) Acute on chronic systolic heart failure Status: Acute Core Measure Documentation - Palliative Care Palliative Care/ Comfort Measures: Not Applicable - Core Measures Any of the following diagnoses?: heart failure - Heart Failure Discharge Requirements JOANNA/ARB for LVSD if EF <40%: Yes Beta jt at discharge: Yes Exam - Constitutional Vitals: Temp Pulse Resp BP Pulse Ox 98.5 F 87 18 117/83 99 02/09/18 05:19 02/09/18 09:03 02/08/18 23:21 02/09/18 09:03 02/09/18 05:19 General appearance: Present: no acute distress, well-nourished - EENT Eyes: Present: PERRL - Neck Neck: Present: supple, normal ROM - Respiratory Respiratory effort: normal Respiratory: bilateral: CTA - Cardiovascular Heart Sounds: Present: S1 & S2. Absent: rub, click - Extremities Extremities: pulses symmetrical, No edema Peripheral Pulses: within normal limits - Abdominal General gastrointestinal: Present: soft, non-tender, non-distended, normal bowel sounds - Integumentary Integumentary: Present: clear, warm, dry - Musculoskeletal Musculoskeletal: gait normal, strength equal bilaterally - Psychiatric Psychiatric: appropriate mood/affect, intact judgment & insight - Neurologic Neurologic: CNII-XII intact, moves all extremities Plan Activity: fall precautions Weight Bearing Status: Weight Bear as Tolerated Diet: low cholesterol, low salt, diabetic Special Instructions: restrict fluid intake to (1.5L/day) Follow up with: PRIMARY CARE, [Primary Care Provider] - 3-5 Days Prescriptions: Azithromycin [Zithromax TAB] 500 mg PO QDAY #3 tablet Gabapentin [Neurontin] 800 mg PO TID #90 capsule Sacubitril/Valsartan [Entresto 49 mg-51 mg Tablet] 1 each PO DAILY #30 tablet
[2018-02-09] MEDS ORDERED: PNEUMOVAX 23 IM ONE (12:00)
== END 2018-02-09 13:13 | disposition home or self-care (01) | DRG 292 ==
LOC: ED 18:45 → 4A 23:17
PROVIDERS: ADMIT Family Medicine; ATTEND Family Medicine
PROC: 3E0234Z Introduction of Serum, Toxoid and Vaccine into Muscle, Percutaneous Approach (ICD-10-PCS; principal; 2018-02-08)
DX: I11.0 Hypertensive heart disease with heart failure (principal); I47.2 Ventricular tachycardia; R09.1 Pleurisy; I50.23 Acute on chronic systolic (congestive) heart failure; I42.8 Other cardiomyopathies; D63.8 Anemia in other chronic diseases classified elsewhere; J20.9 Acute bronchitis, unspecified; E66.01 Morbid (severe) obesity due to excess calories; G47.33 Obstructive sleep apnea (adult) (pediatric); E78.5 Hyperlipidemia, unspecified; E87.6 Hypokalemia; E11.40 Type 2 diabetes mellitus with diabetic neuropathy, unspecified; Z79.82 Long term (current) use of aspirin; Z79.899 Other long term (current) drug therapy; Z23 Encounter for immunization; Z95.810 Presence of automatic (implantable) cardiac defibrillator; I25.2 Old myocardial infarction; Z79.4 Long term (current) use of insulin; Z82.49 Family history of ischemic heart disease and other diseases of the circulatory system; Z68.37 Body mass index [BMI] 37.0-37.9, adult
CPT/HCPCS: 36415; 71046; 80048; 80053; 82310; 82550; 82553; 82962; 83735; 83880; 84100; 84484; 85025; 85610; 90732; 93005; 93010; 94760; 96374; 96375; A9270-GY; J0456; J0696; J1650; J1815; J1940; J3480; J7040; J7050

== ENCOUNTER 2021-03-25 12:52 | Emergency (ER) | payer MEDICARE, OTHER ==
[2021-03-25] MEDS ORDERED: MORPHINE 4 MG/1 ML INJ IV ONE (13:42)
[2021-03-25] MEDS ORDERED: ONDANSETRON 4 MG/2 ML INJ IV ONE (13:42)
[2021-03-25] MEDS ORDERED: dexAMETHasone 4 MG/ML VIAL IV ONE (13:43)
[2021-03-25] MEDS ORDERED: METAXALONE 800 MG TAB PO ONE (13:43)
[2021-03-25] MEDS ORDERED: KETOROLAC 60 MG/2 ML INJ IVP ONE (13:43)
--- NOTE | 2021-03-25 14:08 | Emergency Department Report ---
ED General Adult HPI - General Chief complaint: Back Pain/Injury Stated complaint: BACK PAIN/WORK ACCIDENT Time Seen by Provider: 03/25/21 13:17 Source: family, EMS Mode of arrival: Stretcher Limitations: Physical Limitation - History of Present Illness Initial comments: The patient presents to the emergency department the chief complaint of back pain that started while pulling a sled at work. Patient states the pain is sharp in nature and radiates into both of his legs. Patient is actively urinating into a urinal. Patient denies numbness or tingling to his perineum. Patient states any movement makes the pain worse. -: Sudden Severity scale (0 -10): 8 Quality: sharp Consistency: constant Improves with: rest Worsens with: movement Associated Symptoms: denies other symptoms Treatments Prior to Arrival: none - Related Data Home Medications Medication Instructions Recorded Confirmed Last Taken Aspirin 325 mg PO DAILY 03/13/14 02/08/18 1 Day Ago ~02/07/18 hydrALAZINE [Apresoline TAB] 50 mg PO TID 03/13/14 02/08/18 1 Day Ago ~02/07/18 metFORMIN [Glucophage] 1,000 mg PO BID 03/13/14 02/08/18 1 Day Ago ~02/07/18 AtorvaSTATin [Lipitor] 20 mg PO QHS 04/23/17 02/08/18 1 Day Ago ~02/07/18 Colchicine [Colcrys] 0.6 mg PO BID 04/23/17 02/08/18 1 Day Ago ~02/07/18 Insulin Glargine,Hum.rec.anlog 40 units PO QHS 04/23/17 02/08/18 1 Day Ago [Lantus Solostar] ~02/07/18 Isosorbide Dinitrate [Isordil] 20 mg PO TID 04/23/17 02/08/18 1 Day Ago ~02/07/18 allopurinoL [Zyloprim] 300 mg PO BID 04/23/17 02/08/18 1 Day Ago ~02/07/18 amLODIPine 10 mg PO QDAY 04/23/17 02/08/18 1 Day Ago ~02/07/18 carvediloL [Coreg] 1 tab PO BID 04/23/17 02/08/18 1 Day Ago ~02/07/18 Previous Rx's Medication Instructions Recorded Last Taken Type Furosemide [Lasix TAB] 40 mg PO DAILY #30 tablet 04/25/17 1 Day Ago Rx ~02/07/18 Sacubitril/Valsartan [Entresto 49 1 each PO DAILY #30 tablet 02/07/18 Unknown Rx mg-51 mg Tablet] Acetaminophen [Acetaminophen TAB] 650 mg PO Q6H PRN tablet 02/09/18 Unknown Rx Azithromycin [Zithromax TAB] 500 mg PO QDAY #3 tablet 02/09/18 Unknown Rx Gabapentin 800 mg PO TID #90 capsule 02/09/18 Unknown Rx Insulin Glargine [Lantus VIAL] 40 units SUB-Q QHS units 02/09/18 Unknown Rx Isosorbide Dinitrate [Isordil] 20 mg PO TID tablet 02/09/18 Unknown Rx Spironolactone [Aldactone] 25 mg PO QDAY tablet 02/09/18 Unknown Rx amLODIPine 10 mg PO QDAY tablet 02/09/18 Unknown Rx metFORMIN [Glucophage] 1,000 mg PO BID tablet 02/09/18 Unknown Rx HYDROcodone/APAP 7.5-325 [[place] 1 each PO Q6HR PRN #15 tablet 03/25/21 Unknown Rx 7.5/325] Ibuprofen [Motrin] 600 mg PO Q6H PRN #30 tablet 03/25/21 Unknown Rx methOCARBAMOL [Robaxin TAB] 750 mg PO BID #60 tab 03/25/21 Unknown Rx predniSONE [Deltasone] 20 mg PO DAILY #15 tablet 03/25/21 Unknown Rx Allergies Allergy/AdvReac Type Severity Reaction Status Date / Time No Known Allergies Allergy Verified 01/22/14 22:24 ED Review of Systems ROS: Stated complaint: BACK PAIN/WORK ACCIDENT Other details as noted in HPI Comment: All other systems reviewed and negative Constitutional: denies: chills, fever Eyes: denies: eye pain, eye discharge, vision change ENT: denies: ear pain, throat pain Respiratory: denies: cough, shortness of breath, wheezing Cardiovascular: denies: chest pain, palpitations Endocrine: no symptoms reported Gastrointestinal: denies: abdominal pain, nausea, diarrhea Genitourinary: denies: urgency, dysuria Musculoskeletal: back pain. denies: joint swelling, arthralgia Skin: denies: rash, lesions Neurological: denies: headache, weakness, paresthesias Psychiatric: denies: anxiety, depression Hematological/Lymphatic: denies: easy bleeding, easy bruising ED Past Medical Hx - Past Medical History Previous Medical History?: No Hx Hypertension: Yes Hx Heart Attack/AMI: Yes (2006) Hx Congestive Heart Failure: Yes Hx Diabetes: Yes Hx Asthma: No Additional medical history: high cholesterol - Surgical History Hx Internal Defibrillator: Yes Additional Surgical History: defibrilator, shoulder surgery - Social History Smoking Status: Never Smoker - Medications Home Medications: Home Medications Medication Instructions Recorded Confirmed Last Taken Type Aspirin 325 mg PO DAILY 03/13/14 02/08/18 1 Day Ago History ~02/07/18 hydrALAZINE [Apresoline TAB] 50 mg PO TID 03/13/14 02/08/18 1 Day Ago History ~02/07/18 metFORMIN [Glucophage] 1,000 mg PO BID 03/13/14 02/08/18 1 Day Ago History ~02/07/18 AtorvaSTATin [Lipitor] 20 mg PO QHS 04/23/17 02/08/18 1 Day Ago History ~02/07/18 Colchicine [Colcrys] 0.6 mg PO BID 04/23/17 02/08/18 1 Day Ago History ~02/07/18 Insulin Glargine,Hum.rec.anlog 40 units PO QHS 04/23/17 02/08/18 1 Day Ago History [Lantus Solostar] ~02/07/18 Isosorbide Dinitrate [Isordil] 20 mg PO TID 04/23/17 02/08/18 1 Day Ago History ~02/07/18 allopurinoL [Zyloprim] 300 mg PO BID 04/23/17 02/08/18 1 Day Ago History ~02/07/18 amLODIPine 10 mg PO QDAY 04/23/17 02/08/18 1 Day Ago History ~02/07/18 carvediloL [Coreg] 1 tab PO BID 04/23/17 02/08/18 1 Day Ago History ~02/07/18 Furosemide [Lasix TAB] 40 mg PO DAILY #30 tablet 04/25/17 02/08/18 1 Day Ago Rx ~02/07/18 Sacubitril/Valsartan [Entresto 49 1 each PO DAILY #30 tablet 02/07/18 Unknown Rx mg-51 mg Tablet] Acetaminophen [Acetaminophen TAB] 650 mg PO Q6H PRN tablet 02/09/18 Unknown Rx Azithromycin [Zithromax TAB] 500 mg PO QDAY #3 tablet 02/09/18 Unknown Rx Gabapentin 800 mg PO TID #90 capsule 02/09/18 Unknown Rx Insulin Glargine [Lantus VIAL] 40 units SUB-Q QHS units 02/09/18 Unknown Rx Isosorbide Dinitrate [Isordil] 20 mg PO TID tablet 02/09/18 Unknown Rx Spironolactone [Aldactone] 25 mg PO QDAY tablet 02/09/18 Unknown Rx amLODIPine 10 mg PO QDAY tablet 02/09/18 Unknown Rx metFORMIN [Glucophage] 1,000 mg PO BID tablet 02/09/18 Unknown Rx HYDROcodone/APAP 7.5-325 [[place] 1 each PO Q6HR PRN #15 tablet 03/25/21 Unknown Rx 7.5/325] Ibuprofen [Motrin] 600 mg PO Q6H PRN #30 tablet 03/25/21 Unknown Rx methOCARBAMOL [Robaxin TAB] 750 mg PO BID #60 tab 03/25/21 Unknown Rx predniSONE [Deltasone] 20 mg PO DAILY #15 tablet 03/25/21 Unknown Rx ED Physical Exam - General Limitations: Physical Limitation General appearance: alert, in no apparent distress - Head Head exam: Present: atraumatic, normocephalic - Eye Eye exam: Present: normal appearance, PERRL, EOMI - ENT ENT exam: Present: mucous membranes moist - Neck Neck exam: Present: normal inspection - Respiratory Respiratory exam: Present: normal lung sounds bilaterally. Absent: respiratory distress - Cardiovascular Cardiovascular Exam: Present: regular rate, normal rhythm. Absent: systolic murmur, diastolic murmur, rubs, gallop - GI/Abdominal GI/Abdominal exam: Present: soft, normal bowel sounds - Rectal Rectal exam: Present: deferred - Extremities Exam Extremities exam: Present: normal inspection - Back Exam Back exam: Present: normal inspection, paraspinal tenderness, other (Bilateral positive straight leg raise) - Neurological Exam Neurological exam: Present: alert, oriented X3 - Psychiatric Psychiatric exam: Present: normal affect, normal mood - Skin Skin exam: Present: warm, dry, intact, normal color. Absent: rash ED Course Vital Signs 03/25/21 03/25/2103/25/21 13:09 13:15 13:31 Temperature 97.3 F L Pulse Rate 82 81 80 Respiratory 14 17 Rate Blood Pressure 116/80 Blood Pressure 116/80 [Right] O2 Sat by Pulse 96 Oximetry 03/25/21 03/25/21 03/25/21 14:15 15:20 16:15 Temperature Pulse Rate 79 78 84 Respiratory 13 12 15 Rate Blood Pressure 121/82 115/81 127/86 Blood Pressure [Right] O2 Sat by Pulse Oximetry 03/25/21 16:30 Temperature Pulse Rate Respiratory Rate Blood Pressure Blood Pressure [Right] O2 Sat by Pulse 96 Oximetry ED Medical Decision Making - Radiology Data Radiology results: report reviewed - Medical Decision Making Discussed findings with the patient and his also discussed the importance of following up with neurosurgery Critical care attestation.: If time is entered above; I have spent that time in minutes in the direct care of this critically ill patient, excluding procedure time. ED Disposition Clinical Impression: Bulging lumbar disc Disposition: TO HOME OR SELFCARE Is pt being admited?: No Does the pt Need Aspirin: No Condition: Stable Instructions: Herniated Disk Additional Instructions: return if worse Prescriptions: predniSONE [Deltasone] 20 mg PO DAILY #15 tablet Ibuprofen [Motrin] 600 mg PO Q6H PRN #30 tablet PRN Reason: Pain HYDROcodone/APAP 7.5-325 [[place] 7.5/325] 1 each PO Q6HR PRN #15 tablet PRN Reason: Pain methOCARBAMOL [Robaxin TAB] 750 mg PO BID #60 tab Referrals: PRIMARY CARE, [Primary Care Provider] - 3-5 Days [facility] [Provider Group] - 3-5 Days Time of Disposition: 16:54
--- NOTE | 2021-03-25 15:35 | Cat Scan Report ---
CT THORACIC SPINE WITHOUT CONTRAST INDICATION / CLINICAL INFORMATION: Radiculopathy. TECHNIQUE: Axial CT images were obtained through the thoracic spine. Sagittal and coronal reformatted images wer e produced. All CT scans at this location are performed using CT dose reduction for ALARA by means of automated exposure control. COMPARISON: None available. FINDINGS: VERTEBRAE: No significant abnormality. ALIGNMENT: No significant abnormality. DISC SPACES: No significant abnormality. Anterior bridging osteophytes; neuroforamina are normal FACET and COSTOVERTEBRAL JOINTS: Hypertrophic changes on the right costovertebral joints at C5-C6, C6 -C7, C7 T8 levels; facet joint hypertrophic changes at 6 T10-T11 and T11-T12 disc levels CERVICOTHORACIC JUNCTION:No significant abnormality. SPINAL CANAL: No significant abnormality. PARASPINAL SOFT TISSUES: No significant abnormality. ADDITIONAL FINDINGS: Ossification ossification of ligamentum flavum at the upper thoracic and mid tho racic disc levels LUNGS: No significant abnormality of visualized lungs. IMPRESSION: Multilevel bridging osteophytes suggesting DISH; no fracture; normal neuroforamina Signer Name: Ernestine Millard MD Signed: 03/25/2021 3:31 PM Workstation Name: [id number]
--- NOTE | 2021-03-25 15:42 | Cat Scan Report ---
CT LUMBAR SPINE WITHOUT CONTRAST HISTORY: Radiculopathy COMPARISON: None TECHNIQUE: CT images of the lumbar spine were obtained without contrast. Sagittal and coronal reform ats were post-processed.All CT scans at this location are performed using CT dose reduction for ALARA by means of automated exposure control. CONTRAST: None. FINDINGS: Alignment: Normal. No traumatic subluxation. Vertebrae:No significant abnormality. No fracture. Disc Spaces: Bridging osteophytes in the upper lumbar spine consistent with DISH; L1-L2 and L2-L3 disc spaces normal L3-L4: Disc height loss with sclerotic changes; disc protrusion without lateralization; lateral reces ses are stenotic L4-L5: Disc height normal; mild facet joint degenerative changes; bulging disc; left lateral recess a nd left foramina are narrowed; moderate facet joint hypertrophic changes on the left side L5-S1: Bulging disc Additional Findings: None IMPRESSION: L3-L4: Disc protrusion without lateralization; lateral recesses are stenotic L4-L5: Left lateral recess and left foraminal stenoses Signer Name: Ernestine Millard MD Signed: 03/25/2021 3:38 PM Workstation Name: [id number]
[2021-03-25] MEDS ORDERED: HYDROcodone/ACETAMINOPHEN 10-325MG TAB PO ONE (16:53)
[2021-03-25 17:17] VITALS: BP 137/82
== END 2021-03-25 17:53 | disposition home or self-care (01) ==
LOC: ED 12:52
DX: M51.26 Other intervertebral disc displacement, lumbar region (principal); I11.0 Hypertensive heart disease with heart failure; I50.9 Heart failure, unspecified; E11.9 Type 2 diabetes mellitus without complications; Z98.890 Other specified postprocedural states; Z79.1 Long term (current) use of non-steroidal anti-inflammatories (NSAID); Z79.4 Long term (current) use of insulin; Z79.899 Other long term (current) drug therapy
CPT/HCPCS: 72128; 72131; 96374; 96375; 99284; J1100; J1885; J2270; J2405

== ENCOUNTER 2021-08-23 09:47 | Emergency (ER) | payer MEDICARE, OTHER ==
[2021-08-23] MEDS ORDERED: IBUPROFEN 800 MG TAB PO ONE (10:08)
[2021-08-23] MEDS ORDERED: HYDROcodone/ACETAMINOPHEN 5-325 MG TAB PO ONE (10:08)
--- NOTE | 2021-08-23 10:13 | Emergency Department Report ---
ED Male HPI - General Chief complaint: Extremity Problem,Nontraumatic Stated complaint: GROIN PAIN Time Seen by Provider: 08/23/21 09:58 Source: patient Mode of arrival: Ambulatory Limitations: No Limitations - History of Present Illness Initial comments: 50-year-old male presents to ED with 2-day history of testicular pain. Patient states pain seems to be worse in the left testicle. Patient states he was having some mild pain in that area, however he lifted a couch a couple of days ago and that is when the pain became worse. He denies any abdominal pain, nausea, or vomiting. He denies any dysuria, hematuria, urinary frequency, scrotal swelling. MD Complaint: testicle pain -: days(s) (2) Location: left testicle Radiation: none Severity: moderate Quality: aching Consistency: constant Improves with: none Worsens with: palpation, movement denies: discharge, swelling, urinary retention, blood in urine, dysuria, fever, nausea/vomiting, incontinence - Related Data Home Medications Medication Instructions Recorded Confirmed Last Taken Aspirin 325 mg PO DAILY 03/13/14 02/08/18 1 Day Ago ~02/07/18 hydrALAZINE [Apresoline TAB] 50 mg PO TID 03/13/14 02/08/18 1 Day Ago ~02/07/18 metFORMIN [Glucophage] 1,000 mg PO BID 03/13/14 02/08/18 1 Day Ago ~02/07/18 AtorvaSTATin [Lipitor] 20 mg PO QHS 04/23/17 02/08/18 1 Day Ago ~02/07/18 Colchicine [Colcrys] 0.6 mg PO BID 04/23/17 02/08/18 1 Day Ago ~02/07/18 Insulin Glargine,Hum.rec.anlog 40 units PO QHS 04/23/17 02/08/18 1 Day Ago [Lantus Solostar] ~02/07/18 Isosorbide Dinitrate [Isordil] 20 mg PO TID 04/23/17 02/08/18 1 Day Ago ~02/07/18 allopurinoL [Zyloprim] 300 mg PO BID 04/23/17 02/08/18 1 Day Ago ~02/07/18 amLODIPine 10 mg PO QDAY 04/23/17 02/08/18 1 Day Ago ~02/07/18 carvediloL [Coreg] 1 tab PO BID 04/23/17 02/08/18 1 Day Ago ~02/07/18 Previous Rx's Medication Instructions Recorded Last Taken Type Furosemide [Lasix TAB] 40 mg PO DAILY #30 tablet 04/25/17 1 Day Ago Rx ~02/07/18 Sacubitril/Valsartan [Entresto 49 1 each PO DAILY #30 tablet 02/07/18 Unknown Rx mg-51 mg Tablet] Acetaminophen [Acetaminophen TAB] 650 mg PO Q6H PRN tablet 02/09/18 Unknown Rx Azithromycin [Zithromax TAB] 500 mg PO QDAY #3 tablet 02/09/18 Unknown Rx Gabapentin 800 mg PO TID #90 capsule 02/09/18 Unknown Rx Insulin Glargine [Lantus VIAL] 40 units SUB-Q QHS units 02/09/18 Unknown Rx Isosorbide Dinitrate [Isordil] 20 mg PO TID tablet 02/09/18 Unknown Rx Spironolactone [Aldactone] 25 mg PO QDAY tablet 02/09/18 Unknown Rx amLODIPine 10 mg PO QDAY tablet 02/09/18 Unknown Rx metFORMIN [Glucophage] 1,000 mg PO BID tablet 02/09/18 Unknown Rx HYDROcodone/APAP 7.5-325 [[place] 1 each PO Q6HR PRN #15 tablet 03/25/21 Unknown Rx 7.5/325] Ibuprofen [Motrin] 600 mg PO Q6H PRN #30 tablet 03/25/21 Unknown Rx methOCARBAMOL [Robaxin TAB] 750 mg PO BID #60 tab 03/25/21 Unknown Rx predniSONE [Deltasone] 20 mg PO DAILY #15 tablet 03/25/21 Unknown Rx Naproxen [Naprosyn] 500 mg PO BID #20 tablet 08/23/21 Unknown Rx traMADoL [Ultram] 50 mg PO Q6HR PRN #7 tablet 08/23/21 Unknown Rx Allergies Allergy/AdvReac Type Severity Reaction Status Date / Time No Known Allergies Allergy Verified 01/22/14 22:24 ED Review of Systems ROS: Stated complaint: GROIN PAIN Other details as noted in HPI Comment: All other systems reviewed and negative Constitutional: denies: fever Gastrointestinal: denies: abdominal pain, nausea, vomiting Genitourinary: as per HPI, testicular pain. denies: dysuria, frequency, hematuria, discharge ED Past Medical Hx - Past Medical History Previous Medical History?: Yes Hx Hypertension: Yes Hx Heart Attack/AMI: Yes (2006) Hx Congestive Heart Failure: Yes Hx Diabetes: Yes Hx Asthma: No Additional medical history: high cholesterol - Surgical History Past Surgical History?: Yes Hx Internal Defibrillator: Yes Additional Surgical History: defibrilator, shoulder surgery - Social History Smoking Status: Never Smoker - Medications Home Medications: Home Medications Medication Instructions Recorded Confirmed Last Taken Type Aspirin 325 mg PO DAILY 03/13/14 02/08/18 1 Day Ago History ~02/07/18 hydrALAZINE [Apresoline TAB] 50 mg PO TID 03/13/14 02/08/18 1 Day Ago History ~02/07/18 metFORMIN [Glucophage] 1,000 mg PO BID 03/13/14 02/08/18 1 Day Ago History ~02/07/18 AtorvaSTATin [Lipitor] 20 mg PO QHS 04/23/17 02/08/18 1 Day Ago History ~02/07/18 Colchicine [Colcrys] 0.6 mg PO BID 04/23/17 02/08/18 1 Day Ago History ~02/07/18 Insulin Glargine,Hum.rec.anlog 40 units PO QHS 04/23/17 02/08/18 1 Day Ago History [Lantus Solostar] ~02/07/18 Isosorbide Dinitrate [Isordil] 20 mg PO TID 04/23/17 02/08/18 1 Day Ago History ~02/07/18 allopurinoL [Zyloprim] 300 mg PO BID 04/23/17 02/08/18 1 Day Ago History ~02/07/18 amLODIPine 10 mg PO QDAY 04/23/17 02/08/18 1 Day Ago History ~02/07/18 carvediloL [Coreg] 1 tab PO BID 04/23/17 02/08/18 1 Day Ago History ~02/07/18 Furosemide [Lasix TAB] 40 mg PO DAILY #30 tablet 04/25/17 02/08/18 1 Day Ago Rx ~02/07/18 Sacubitril/Valsartan [Entresto 49 1 each PO DAILY #30 tablet 02/07/18 Unknown Rx mg-51 mg Tablet] Acetaminophen [Acetaminophen TAB] 650 mg PO Q6H PRN tablet 02/09/18 Unknown Rx Azithromycin [Zithromax TAB] 500 mg PO QDAY #3 tablet 02/09/18 Unknown Rx Gabapentin 800 mg PO TID #90 capsule 02/09/18 Unknown Rx Insulin Glargine [Lantus VIAL] 40 units SUB-Q QHS units 02/09/18 Unknown Rx Isosorbide Dinitrate [Isordil] 20 mg PO TID tablet 02/09/18 Unknown Rx Spironolactone [Aldactone] 25 mg PO QDAY tablet 02/09/18 Unknown Rx amLODIPine 10 mg PO QDAY tablet 02/09/18 Unknown Rx metFORMIN [Glucophage] 1,000 mg PO BID tablet 02/09/18 Unknown Rx HYDROcodone/APAP 7.5-325 [[place] 1 each PO Q6HR PRN #15 tablet 03/25/21 Unknown Rx 7.5/325] Ibuprofen [Motrin] 600 mg PO Q6H PRN #30 tablet 03/25/21 Unknown Rx methOCARBAMOL [Robaxin TAB] 750 mg PO BID #60 tab 03/25/21 Unknown Rx predniSONE [Deltasone] 20 mg PO DAILY #15 tablet 03/25/21 Unknown Rx Naproxen [Naprosyn] 500 mg PO BID #20 tablet 08/23/21 Unknown Rx traMADoL [Ultram] 50 mg PO Q6HR PRN #7 tablet 08/23/21 Unknown Rx ED Physical Exam - General Limitations: No Limitations General appearance: alert, in no apparent distress - Head Head exam: Present: atraumatic, normocephalic - Eye Eye exam: Present: normal appearance, EOMI - ENT ENT exam: Present: mucous membranes moist - Neck Neck exam: Present: normal inspection - Respiratory Respiratory exam: Present: normal lung sounds bilaterally. Absent: respiratory distress - Cardiovascular Cardiovascular Exam: Present: normal rhythm, bradycardia - GI/Abdominal GI/Abdominal exam: Present: soft. Absent: distended, tenderness - exam: Present: normal inspection, testicular tenderness (Left-sided). Absent: urethral discharge, scrotal swelling External exam: Present: normal external exam. Absent: erythema, swelling, lesions, lacerations, ecchymosis, bleeding - Extremities Exam Extremities exam: Present: normal inspection - Neurological Exam Neurological exam: Present: alert, oriented X3 - Psychiatric Psychiatric exam: Present: normal affect, normal mood - Skin Skin exam: Present: warm, dry, intact, normal color ED Course Vital Signs 08/23/21 08/23/21 08/23/21 09:51 10:45 11:24 Temperature 97.8 F 98.1 F Pulse Rate 54 L 98 H Respiratory 18 18 12 Rate Blood Pressure 131/82 Blood Pressure 97/65 [Left] O2 Sat by Pulse 100 95 Oximetry 08/23/21 08/23/21 11:25 11:29 Temperature 98.1 F Pulse Rate 98 H Respiratory 12 12 Rate Blood Pressure 97/65 Blood Pressure [Left] O2 Sat by Pulse 95 95 Oximetry ED Medical Decision Making - Radiology Data Radiology results: report reviewed, image reviewed - Medical Decision Making 58-year-old male presents to ED with testicular pain, worse after lifting a sofa. On exam patient has some mild tenderness to the left testicle. Abdomen is soft and nontender. No scrotal swelling or edema present. Ultrasound negative for any acute findings. UA is normal. Patient advised to follow-up with urology. Return precautions given. - Differential Diagnosis Hernia, epididymitis, orchitis Critical care attestation.: If time is entered above; I have spent that time in minutes in the direct care of this critically ill patient, excluding procedure time. ED Disposition Clinical Impression: Testicle pain Disposition: 01 HOME / SELF CARE / HOMELESS Is pt being admited?: No Condition: Stable Instructions: Inguinal Hernia, Adult, [id number], Testicular Self-Exam, [id number] Prescriptions: Naproxen [Naprosyn] 500 mg PO BID #20 tablet traMADoL [Ultram] 50 mg PO Q6HR PRN #7 tablet PRN Reason: Pain Referrals: JAMES VOGT MD [Staff Physician] - 3-5 Days Time of Disposition: 14:26
--- NOTE | 2021-08-23 11:10 | Ultrasound Report ---
ULTRASOUND SCROTUM INDICATION: Scrotal pain, worse on left. COMPARISON None available. FINDINGS -- RIGHT TESTIS: Size: 4.5 cm. Echotexture: Normal. Color Doppler Flow: Normal. Lesions: None. EPIDIDYMIS: Size: Normal. Echotexture: Normal. Color Doppler Flow: Normal. Lesions: None. Hydrocele: None. Varicocele: None. Additional Findings: None. FINDINGS -- LEFT TESTIS: Size: 4.4 cm. Echotexture: Normal. Color Doppler Flow: Normal. Lesions: None. EPIDIDYMIS: Size: Normal. Echotexture: Normal. Color Doppler Flow: Normal. Lesions: None. Hydrocele: None. Varicocele: Small Additional Findings: None. IMPRESSION: 1. No testicular abnormality is seen bilaterally. 2. Small left scrotal varicocele. Signer Name: Leon Jaime MD Signed: 08/23/2021 11:06 AM Workstation Name: [id number]
[2021-08-23 14:14] LABS: RBC,Urine < 1.0 /HPF (0.0-6.0); WBC,Urine < 1.0 /HPF (0.0-6.0)
[2021-08-23 14:16] LABS: Bilirubin,Urine NEG (Negative); Blood,Urine NEG (Negative); Color,Urine Straw (Yellow); Protein,Urine <15 mg/dL mg/dL (Negative); Urobilinogen,Urine < 2.0 mg/dL (<2.0)
[2021-08-23 15:07] VITALS: BP 113/81
== END 2021-08-23 15:22 | disposition home or self-care (01) ==
LOC: ED 09:47
DX: N50.812 Left testicular pain (principal); E11.8 Type 2 diabetes mellitus with unspecified complications; Z86.79 Personal history of other diseases of the circulatory system; I10 Essential (primary) hypertension
CPT/HCPCS: 81001; 93975; 99284